=== PATIENT | female | born 1975 ===

== ENCOUNTER 2023-10-18 07:15 | Day surgery (SDC) | payer BC ==
[2023-10-18] MEDS ORDERED: LACTATED RINGERS 1,000 ML BAG ONE (12:10)
[2023-10-18] MEDS ORDERED: PROPOFOL 10 MG/ML 20 ML VIAL IV ONE (12:31)
--- NOTE | 2023-10-28 15:53 | OP ---
OPERATIVE REPORT DATE OF SERVICE : 10/18/2023 REQUESTING PHYSICIAN: Dr. Rl Babcock. BRIEF HISTORY: The patient is a 48-year-old pleasant white female, scheduled for a colonoscopy as a part of screening for colorectal neoplasia. PROCEDURE PERFORMED: Colonoscopy. PREOPERATIVE DIAGNOSIS: Screening for colon cancer. ANESTHESIA: IV sedation per Anesthesia. DESCRIPTION OF PROCEDURE: After informed consent was obtained from the patient, she was brought to the endoscopy unit. IV conscious sedation was administered by Anesthesia and continuous monitoring. Initial digital rectal examination was normal. The Olympus CF-190 video colonoscope was inserted in the rectum, gradually advanced into the cecum. Careful examination was performed. The scope was gradually being withdrawn. Ileocecal valve and appendicial orifice were visualized and appeared to be normal. The prep was fair. Thorough irrigation was performed using irrigation system. Mucosa of the cecum, ascending colon, transverse colon, descending colon, sigmoid colon, and rectum appeared normal. In the rectum, retroflexion was performed. No lesions were noted. The patient tolerated the procedure well. IMPRESSION: Normal-appearing colon from rectum to cecum. There is with no evidence of colitis or colorectal neoplasia. RECOMMENDATIONS: Findings of this examination were discussed with the patient as well as her family. She was advised to have repeat screening colonoscopy in 10 years. MMODL / IJN: [id number] /
== END 2023-10-18 13:28 ==
LOC: ORWHC2ENDO 07:15
PROVIDERS: ATTEND Internal Medicine Gastroenterology
DX: Z12.11 Encounter for screening for malignant neoplasm of colon
CPT/HCPCS: 45378; 81025